=== PATIENT | male | born 2000 | race African-American/Black ===

== ENCOUNTER 2023-05-14 16:56 | Emergency (ER) | payer OTHER ==
[2023-05-14] MEDS ORDERED: DIAZEPAM 10 MG/2 ML INJ SYRINGE ONE (17:15)
--- NOTE | 2023-05-14 18:56 | RAD REPORT ---
EXAM DESCRIPTION: Shoulder Right 2 View - 05/14/2023 6:26 pm CLINICAL HISTORY: Pain;Deformity COMPARISON: No comparisons TECHNIQUE: Internal and external rotation views of the right shoulder were obtained. FINDINGS: Glenohumeral joint appears well aligned on the provided images. Subtle cortical irregulari ty along the inferior margin of the glenoid, could represent a small Bankart lesion. AC joint is norm al in appearance. No other acute or suspicious findings. IMPRESSION: No evidence of malalignment on the provided images. Subtle cortical irregularity along t he inferior margin of the glenoid could represent a Bankart lesion.
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
--- NOTE | 2023-05-14 20:21 | RAD REPORT ---
EXAM DESCRIPTION: Shoulder Right 2 View - 05/14/2023 8:00 pm CLINICAL HISTORY: POST COMPARISON: Shoulder Right 2 View dated 05/14/2023 TECHNIQUE: Internal and external rotation views of the right shoulder were obtained. FINDINGS: There is no fracture. Satisfactory alignment of the glenohumeral articulation with some ho bjective reduction in the subacromial distance, although the differences in projection compared to th e prior exam limit evaluation. AC joint is normal in appearance. Periarticular soft tissue swelling. No acute or suspicious findings. IMPRESSION: Subjective improved alignment as above.
[2023-05-14 20:29] VITALS: BP 135/92; O2SAT 100
== END 2023-05-14 19:35 | disposition home or self-care (01) ==
LOC: ER 16:56
PROC: 0RSJXZZ Reposition Right Shoulder Joint, External Approach (ICD-10-PCS; principal; 2023-05-14)
DX: S43.031A Inferior subluxation of right humerus, initial encounter (principal); S46.001A Unspecified injury of muscle(s) and tendon(s) of the rotator cuff of right shoulder, initial encounter
CPT/HCPCS: 73030 ×2; 96372; 99284; 23650; J3360